=== PATIENT | female | born 1935 | race Caucasian/White ===

== ENCOUNTER 2020-03-02 15:07 | Emergency (ER) | payer MEDICARE, MEDICAID ==
[2020-03-02 15:56] VITALS: BP 144/82; PULSE 78
--- NOTE | 2020-03-02 16:00 | CR ---
[id number] RAD/RAD Knee Bilateral 3V EXAM: RAD Knee Bilateral 3V INDICATION: FALL/PAIN TO KNEES. COMPARISON: None. FINDINGS: Osteopenia. Minimal right knee joint effusion. Mild to moderate patellofemoral and mild medial lateral compartment osteoarthritis bilaterally. Acute nondisplaced proximal left fibula fracture. No other fracture is identified, but osteopenia somewhat limits sensitivity. IMPRESSION: 1. Essentially nondisplaced proximal left fibula fracture. 2. Small right knee joint effusion. 3. Mild to moderate osteoarthritis. Dain Delatorre MD 03/02/20 1220 Thank you for allowing us to participate in the care of your patient.
--- NOTE | 2020-03-02 16:56 | EDM.PDOC ---
ED HPI GENERAL MEDICAL PROBLEM - General Chief Complaint: General Stated Complaint: fall knee pain bilat Time Seen by Provider: 03/02/20 15:18 Source of Information: Reports: Patient - History of Present Illness INITIAL COMMENTS - FREE TEXT/NARRATIVE: Patient comes emergency department today from home with complaints of bilateral knee pain. Just prior to arrival the patient was at home when she was doing her laundry and she tripped and fell landing on her knees. She did not hit her head. There was no loss of conscious. She has no head neck or back pain. She complains of bilateral knee pain more on the left than the right. Her pain is on the lateral aspect of her knee below the kneecap. She denies any paresthesia of the lower extremity. She typically walks with a walker at home. She complains of generalized pain on the kneecap of the right knee. No paresthesias the lower extremity. She has not tried anything for pain. She does have some chronic arthritis that she struggles with and she is currently on a fentanyl patch which is really doing excellent for her pain management. Left Knee Pain Score (Numeric/FACES): 10 Right Knee Pain Score (Numeric/FACES): 5 - Related Data Allergies Allergy/AdvReac Type Severity Reaction Status Date / Time alendronate sodium Allergy Chest Pain Verified 03/02/20 15:22 [From Fosamax] aspirin Allergy Vomiting Verified 03/02/20 16:07 cephalexin [From Keflex] Allergy Wheezing Verified 03/02/20 15:22 erythromycin base Allergy Hives Verified 03/02/20 15:22 iodine Allergy Itching Verified 03/02/20 15:22 latex Allergy Itching Verified 03/02/20 15:22 oxycodone Allergy Cannot Verified 03/02/20 16:07 Remember Penicillins Allergy Hives Verified 03/02/20 15:22 risedronate sodium Allergy Cannot Verified 03/02/20 16:07 [From Actonel] Remember Sulfa (Sulfonamide Allergy Wheezing Verified 03/02/20 15:22 Antibiotics) Home Meds: Home Meds DULoxetine [Cymbalta] 60 mg PO DAILY 07/15/19 [History] Ferrous Sulfate 325 mg PO DAILY 07/15/19 [History] Hydrocodone/Acetaminophen [[place] 7.5-325 Tablet] 7.5 - 325 mg PO QID PRN [History] Loperamide [Imodium] 4 mg PO ASDIRECTED PRN 07/15/19 [History] Magnesium Oxide 500 mg PO BID 07/15/19 [History] Nitroglycerin [Nitrostat] 0.4 mg PO ASDIRECTED PRN 07/15/19 [History] Potassium Chloride 10 meq PO BID 07/15/19 [History] Propylene Glycol/Peg 400 [Systane Ultra 0.4-0.3% Eye Drp] 1 applic EYERT Q4H PRN 07/15/19 [History] Sennosides/Docusate Sodium [Senna-Docusate Sodium Tablet] 2 tab PO BID PRN 07/15 [History] Tetrahydrozoline HCl/Zinc Sulf [Cvs Astringent Eye Drops] 1 applic EYEBOTH Q4HR PRN 07/15/19 [History] Triamcinolone Acetonide [Triamcinolone Acetonide 0.1% Crm] 1 applic TOP ASDIRECTED PRN 07/15/19 [History] Trolamine Salicylate/Aloe Vera [Aspercreme 10% Cream] 1 applic TOP ASDIRECTED PRN 07/15/19 [History] Clopidogrel [Plavix] 75 mg PO DAILY #30 tablet 07/19/19 [Rx] atorvaSTATin [Lipitor] 10 mg PO BEDTIME #30 tablet 07/19/19 [Rx] Benzonatate [Tessalon Perle] 100 mg PO TID 03/02/20 [History] Biotin [Meribin] 5 mg PO BID 03/02/20 [History] Calcium Carb, Citrate/Vit D3 [Calcium + D3 ER Tablet] 2 each PO BID 03/02/20 [ History] Cyanocobalamin (Vitamin B-12) [B-12 Dots] 500 mcg PO DAILY 03/02/20 [History] Cyanocobalamin (Vitamin B-12) [Cyanocobalamin Injection] 1,000 mcg IM Q30D 03/02 [History] Ergocalciferol (Vitamin D2) [Vitamin D2] 50,000 unit PO Q84H 03/02/20 [History] Folic Acid 0.4 mg PO DAILY 03/02/20 [History] Furosemide 10 mg PO DAILY 03/02/20 [History] Furosemide [Lasix] 10 mg PO DAILY 03/02/20 [History] MV-Mn/Iron/FA/Vit K/K.Ginseng [[employer] Tab] 1 each PO DAILY [History] Multivitamin-Min/Iron/FA/Vit K [Multi-Day Plus Minerals Tablet] 1 each PO DAILY 03/02/20 [History] fentaNYL [Fentanyl] 1 each TD Q72H 03/02/20 [History] lisinopriL [Lisinopril] 2.5 mg PO DAILY 03/02/20 [History] methocarbamoL [Methocarbamol] 750 mg PO QID 03/02/20 [History] predniSONE [Prednisone] 20 mg PO DAILY 03/02/20 [History] Past Medical History Cardiovascular History: Reports: None Respiratory History: Reports: None ACTIMIZE 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 Endocrine/Metabolic History: Reports: None - Past Surgical History Cardiovascular Surgical History: Reports: None Female Surgical History: Reports: None Endocrine Surgical History: Reports: None Social & Family History - Tobacco Use Smoking Status *Q: Former Smoker Used Tobacco, but Quit: Yes Month/Year Tobacco Last Used: 1999 - Caffeine Use Caffeine Use: Reports: Coffee Caffeine Use Comment: Two ccup of coffe . ED ROS GENERAL - Review of Systems Review Of Systems: Comprehensive ROS is negative, except as noted in HPI. ED EXAM, GENERAL - Physical Exam Exam: See Below Exam Limited By: No Limitations General Appearance: Alert, WD/WN, No Apparent Distress Ears: Normal External Exam Nose: Normal Inspection Throat/Mouth: Normal Inspection Head: Atraumatic, Normocephalic Neck: Normal Inspection Respiratory/Chest: No Respiratory Distress, Lungs Clear Cardiovascular: Normal Peripheral Pulses, Regular Rate, Rhythm Peripheral Pulses: 2+: Radial (L), Radial (R), Posterior Tibial (L), Posterior Tibial (R), Dorsalis Pedis (L), Dorsalis Pedis (R) GI/Abdominal: Normal Bowel Sounds, Soft, Non-Tender, No Organomegaly, No Distention, Pelvis Stable (Female) Exam: Deferred Rectal (Female) Exam: Deferred Back Exam: Full Range of Motion. No: Normal Inspection (The patient has tenderness on the proximal lateral aspect of the left fibula. We are able to put the knee through the range of motion with minimal crepitus. There is no overt bony deformity dislocation. CMS intact appropriately. She does have some chronic ulcers on her lower legs due to venous insufficiency that are unremarkable. Her right knee she has a contusion just to the 5 o'clock position of the patella. There is no overt bony deformity. I am able to put the knee through range of motion. There is no crepitus. There is no bruising or swelling. She has similar chronic venous stasis ulcerations of the lower extremities that are otherwise unremarkable. The CMS intact appropriately bilaterally. She moves her extremities appropriately.), CVA Tenderness (L), CVA Tenderness (R), Muscle Spasm, Paraspinal Tenderness, Vertebral Tenderness Extremities: Normal Inspection, Normal Range of Motion, Non-Tender, No Pedal Edema, Normal Capillary Refill Neurological: Alert, Oriented, Normal Cognition, No Motor/Sensory Deficits Psychiatric: Normal Affect, Normal Mood Skin Exam: Warm, Dry, Intact, Normal Color, No Rash Course - Vital Signs Last Recorded V/S: Last Vital Signs Temp 36.1 C 03/02/20 15:10 Pulse 78 03/02/20 15:10 Resp 16 03/02/20 15:10 BP 144/82 H 03/02/20 15:10 Pulse Ox 97 03/02/20 15:10 - Radiology Interpretation Free Text/Narrative:: The bilateral knees. Nondisplaced proximal left fibular fracture. Small right knee joint effusion. Mild to moderate osteoarthritis bilaterally. - Re-Assessments/Exams Free Text/Narrative Re-Assessment/Exam: 03/02/20 This was applied to the areas of injury to her knees. She denied anything for pain. Xray shows a nondisplaced proximal left fibular fracture. A knee immobilizer was placed on the left knee. The patient was able to ambulate easily with a walker without any pain discomfort. She was steady and feels comfortable with going home. Discharge instruction as below were explained to the patient. She was comfortable with this plan and her questions answered. Departure - Departure Time of Disposition: 16:30 Disposition: Home, Self-Care 01 Clinical Impression: Fracture of proximal end of left fibula Qualifiers: Encounter type: initial encounter Fracture type: closed Fracture morphology: unspecified fracture morphology Qualified Code(s): S82.832A - Other fracture of upper and lower end of left fibula, initial encounter for closed fracture Contusion of knee, right Qualifiers: Encounter type: initial encounter Qualified Code(s): S80.01XA - Contusion of right knee, initial encounter - Discharge Information Instructions: How to Use Cold Therapy, [id number], Contusion, [id number] Referrals: Charu Arzate DO [Primary Care Provider] - Forms: ED Department Discharge Additional Instructions: Ice to the sore areas of the knee. Knee immobilizer at all times. Use your walker at all times. Continue your home medications Tylenol 650mg every 6 hrs as needed for pain. Follow up with ortho in 1 week for recheck and intermediate card tender management. Return to the ED if new or worsening symptoms. Sepsis Event Note (ED) - Evaluation Sepsis Screening Result: No Definite Risk - Focused Exam Vital Signs: Vital Signs Temp Pulse Resp BP Pulse Ox 03/02/20 15:10 36.1 C 78 16 144/82 H 97 - Assessment/Plan Assessment:: Left proximal fibula fracture Right knee contusion with effusion. Plan: Ice to the sore areas of the knee. Knee immobilizer at all times. Use your walker at all times. Continue your home medications Tylenol 650mg every 6 hrs as needed for pain. Follow up with ortho in 1 week for recheck and intermediate card tender management. Return to the ED if new or worsening symptoms.
== END 2020-03-02 17:05 | disposition home or self-care (01) ==
LOC: VM.ED 15:07
DX: S82.832A Other fracture of upper and lower end of left fibula, initial encounter for closed fracture (principal); S80.01XA Contusion of right knee, initial encounter; Z88.6 Allergy status to analgesic agent; Z88.1 Allergy status to other antibiotic agents; Z91.040 Latex allergy status; Z88.5 Allergy status to narcotic agent; Z88.2 Allergy status to sulfonamides; Z88.0 Allergy status to penicillin; Z79.899 Other long term (current) drug therapy; Z79.02 Long term (current) use of antithrombotics/antiplatelets; Z87.891 Personal history of nicotine dependence; W01.0XXA Fall on same level from slipping, tripping and stumbling without subsequent striking against object, initial encounter; Y92.009 Unspecified place in unspecified non-institutional (private) residence as the place of occurrence of the external cause
CPT/HCPCS: 73562-50; 99283-GF; 99284

== ENCOUNTER 2021-08-02 23:47 | Emergency (ER) | payer MEDICARE, MEDICAID ==
--- NOTE | 2021-08-03 00:10 | EDM.PDOC ---
ED HPI GENERAL MEDICAL PROBLEM - General Chief Complaint: General Stated Complaint: left hip pain Time Seen by Provider: 08/03/21 00:00 Source of Information: Reports: Patient, EMS History Limitations: Reports: No Limitations - History of Present Illness INITIAL COMMENTS - FREE TEXT/NARRATIVE: Monica is an 86 year old female who presents to ER per EMS with complaints of left hip pain and groin pain. Slipped down off her bed and landed on her buttocks. Has pain with any movement of her left leg. Has bilateral lower extremity discomfort, chronic in nature. [facility] today due to multiple falls. States tonight was getting up to go to the bathroom and her "legs wouldn't hold me". Denies any head trauma. No chest discomfort. No nausea or vomiting. Onset: Today, Sudden Duration: Minutes:, Constant Location: Reports: Lower Extremity, Left Quality: Reports: Ache Severity: Moderate Improves with: Reports: Rest Worsens with: Reports: Movement Context: Reports: Trauma Associated Symptoms: Reports: Weakness. Denies: Confusion, Chest Pain, Cough, Fever/Chills, Headaches, Loss of Appetite, Nausea/Vomiting, Shortness of Breath Left Hip Pain Score (Numeric/FACES): 5 - Related Data Allergies Allergy/AdvReac Type Severity Reaction Status Date / Time alendronate sodium Allergy Chest Pain Verified 06/09/20 09:59 [From Fosamax] aspirin Allergy Vomiting Verified 06/09/20 09:59 cephalexin [From Keflex] Allergy Wheezing Verified 06/09/20 09:59 erythromycin base Allergy Hives Verified 06/09/20 09:59 iodine Allergy Itching Verified 06/09/20 09:59 latex Allergy Itching Verified 06/09/20 09:59 oxycodone Allergy Cannot Verified 06/09/20 09:59 Remember Penicillins Allergy Hives Verified 06/09/20 09:59 risedronate sodium Allergy Cannot Verified 06/09/20 09:59 [From Actonel] Remember Sulfa (Sulfonamide Allergy Wheezing Verified 06/09/20 09:59 Antibiotics) bandaids Allergy Other Uncoded 06/09/20 09:59 celiac sprue Allergy Cannot Uncoded 08/03/21 00:06 Remember Home Meds: Home Meds Ferrous Sulfate 325 mg PO DAILY 07/15/19 [History] Loperamide [Imodium] 4 mg PO ASDIRECTED PRN 07/15/19 [History] Magnesium Oxide 500 mg PO DAILY 07/15/19 [History] Nitroglycerin [Nitrostat] 0.4 mg PO ASDIRECTED PRN 07/15/19 [History] Propylene Glycol/Peg 400 [Systane Ultra 0.4-0.3% Eye Drp] 1 applic EYERT Q4H PRN 07/15/19 [History] Tetrahydrozoline HCl/Zinc Sulf [Cvs Astringent Eye Drops] 1 applic EYEBOTH Q4HR PRN 07/15/19 [History] Trolamine Salicylate/Aloe Vera [Aspercreme 10% Cream] 1 applic TOP ASDIRECTED PRN 07/15/19 [History] Clopidogrel [Plavix] 75 mg PO DAILY #30 tablet 07/19/19 [Rx] atorvaSTATin [Lipitor] 10 mg PO BEDTIME #30 tablet 07/19/19 [Rx] Calcium Carb, Citrate/Vit D3 [Calcium + D3 ER Tablet] 2 each PO BID 03/02/20 [History] Cyanocobalamin (Vitamin B-12) [Cyanocobalamin Injection] 1,000 mcg IM Q30D 03/02/20 [History] Ergocalciferol (Vitamin D2) [Vitamin D2] 50,000 unit PO WEEKLY 03/02/20 [History] Folic Acid 800 mcg PO BID 03/02/20 [History] Multivitamin-Min/Iron/FA/Vit K [Multi-Day Plus Minerals Tablet] 1 each PO DAILY 03/02/20 [History] lisinopriL [Lisinopril] 2.5 mg PO DAILY 03/02/20 [History] methocarbamoL [Methocarbamol] 750 mg PO BID PRN 03/02/20 [History] DULoxetine [Cymbalta] 60 mg PO DAILY 06/09/20 [History] Biotin 1,000 mcg PO DAILY 08/03/21 [History] Buprenorphine 1 each TD ASDIRECTED 08/03/21 [History] traMADol HCl [Tramadol HCl] 50 mg PO Q8HR PRN 08/03/21 [History] Past Medical History HEENT History: Reports: Other (See Below) Other HEENT History: pseudophakia Cardiovascular History: Reports: Hypertension, Other (See Below) Other Cardiovascular History: mitral regurgitation, BRVO, 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, raynaud disease, venous insufficiency, chest pain Respiratory History: Reports: None Gastrointestinal History: Reports: GERD, Pancreatitis, Other (See Below) Other Gastrointestinal History: celiac sprue Genitourinary History: Reports: Urinary Incontinence, Other (See Below) Other Genitourinary History: stress incontinence, symptomatic menopausal or female climacteric states HOUSE SITTER History: Reports: Prolapsed Uterus Musculoskeletal History: Reports: Arthritis, Fracture, Osteoporosis, RA, Other (See Below) Other Musculoskeletal History: back pain, malaise and fatigue Neurological History: Reports: CVA, Other (See Below) Other Neuro History: fibromyalgia, insomnia, periphreal polyneuropathy Psychiatric History: Reports: Anxiety, Dementia, Depression Other Psychiatric History: Some times anxiety. 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 - Infectious Disease History Infectious Disease History: Reports: C-Difficile - Past Surgical History HEENT Surgical History: Reports: Oral Surgery Cardiovascular Surgical History: Reports: None GI Surgical History: Reports: Appendectomy, Hernia Repair/Other Female Surgical History: Reports: None, Hysterectomy Endocrine Surgical History: Reports: None Musculoskeletal Surgical History: Reports: Other (See Below) Other Musculoskeletal Surgeries/Procedures:: hammer toe surgery Social & Family History - Tobacco Use Tobacco Use Status *Q: Unknown Ever Used Tobacco - Caffeine Use Caffeine Use: Reports: Coffee Caffeine Use Comment: Two ccup of coffe . ED ROS GENERAL - Review of Systems Review Of Systems: See Below Constitutional: Reports: Weakness. Denies: Malaise, Fatigue, Decreased Appetite HEENT: Denies: Ear Pain, Rhinitis, Sinus Problem, Throat Pain Respiratory: Denies: Shortness of Breath, Cough Cardiovascular: Denies: Chest Pain Endocrine: Denies: Fatigue GI/Abdominal: Denies: Abdominal Pain, Nausea, Vomiting : Reports: No Symptoms Musculoskeletal: Reports: Leg Pain, Joint Pain Skin: Reports: Other (redness to legs, chronic in nature) Neurological: Reports: Weakness ED EXAM, GENERAL - Physical Exam Exam: See Below Exam Limited By: No Limitations General Appearance: Alert, WD/WN, Mild Distress Ears: Normal External Exam, Normal TMs Nose: Normal Inspection, Normal Mucosa, No Blood Throat/Mouth: Normal Inspection, Normal Oropharynx Head: Normocephalic Neck: Normal Inspection, Supple, Non-Tender Respiratory/Chest: No Respiratory Distress, Lungs Clear, Normal Breath Sounds Cardiovascular: Regular Rate, Rhythm GI/Abdominal: Normal Bowel Sounds, Soft, Non-Tender Extremities: Limited Range of Motion (pain with movement of left leg/range of motion of hip. Does have tenderness to lower extremities bilaterally), Other Neurological: Alert, Oriented Skin Exam: Other (bandage intact to left puga. Has red skin tone to lower legs bilaterally) Course - Vital Signs Last Recorded V/S: Last Vital Signs Temp 97.7 F 08/03/21 00:00 Pulse 81 08/03/21 02:02 Resp 16 08/03/21 02:02 BP 200/93 H 08/03/21 02:02 Pulse Ox 93 L 08/03/21 02:02 - Orders/Labs/Meds Orders: Active Orders 24 hr Category Date Time Status Pelvis 1V or 2V [CR] Stat Exams 08/03/21 00:04 Ordered Meds: Medications Discontinued Medications Generic Name Dose Route Start Last Admin Trade Name Ada PRN Reason Stop Dose Admin Clonidine HCl 0.1 mg 08/03/21 01:00 08/03/21 01:08 Clonidine 0.1 Mg Tab PO 08/03/21 01:01 0.1 mg ONETIME ONE Administration Fentanyl 25 mcg 08/03/21 00:22 08/03/21 00:40 Fentanyl 50 Mcg/Ml Sdv IVPUSH 08/03/21 00:23 Not Given ONETIME ONE Fentanyl 12.5 mcg 08/03/21 00:28 08/03/21 00:41 Fentanyl 50 Mcg/Ml Sdv IVPUSH 08/03/21 00:29 12.5 mcg ONETIME ONE Administration - Re-Assessments/Exams Free Text/Narrative Re-Assessment/Exam: 08/03/21 01:45 Call placed to [facility] [facility] after xray report received and notes inferior and superior pubic rami fractures. Awaiting call from ortho. 08/03/21 02:[address] back [address] Dr[address] Renae. Advised no surgical intervention. Weight bear as tolerated. Will increase to Lisinopril to 5 mg daily. Departure - Departure Time of Disposition: 02:32 Disposition: Home, Self-Care 01 Condition: Fair Clinical Impression: Pubic ramus fracture Qualifiers: Encounter type: initial encounter Fracture type: closed Laterality: left Qualified Code(s): S32.592A - Other specified fracture of left pubis, initial encounter for closed fracture - Discharge Information Referrals: PCP,None [Primary Care Provider] - Forms: ED Department Discharge Additional Instructions: 1. Increase Lisinopril to 5 mg daily. Recheck blood pressure BID for next [address] report to Dr[address] Arzate 2. Increase tramadol to 50 mg- 1-2 every 6 hours as needed for pain 3. Weight-bear as tolerated 4. Follow up as needed Sepsis Event Note (ED) - Evaluation Sepsis Screening Result: No Definite Risk - Focused Exam Vital Signs: Vital Signs Temp Pulse Resp BP BP Pulse Ox 08/03/21 02:02 81 16 200/93 H 93 L 08/03/21 01:45 88 16 212/104 H 92 L 08/03/21 01:08 199/97 H 08/03/21 00:53 86 16 196/89 H 95 08/03/21 00:41 84 215/97 H 08/03/21 00:25 152/76 H 08/03/21 00:00 97.7 F 88 16 199/95 H 96 - My Orders Last 24 Hours: My Active Orders 08/03/21 00:04 Pelvis 1V or 2V [CR] Stat - Assessment/Plan Last 24 Hours: My Active Orders 08/03/21 00:04 Pelvis 1V or 2V [CR] Stat
[2021-08-03] MEDS ORDERED: fentaNYL 50 MCG/ML SDV IVPUSH ONE ×2 (00:22→00:28)
--- NOTE | 2021-08-03 00:22 | EDM.PDOC ---
ED HPI GENERAL MEDICAL PROBLEM - General Chief Complaint: General Time Seen by Provider: 08/03/21 00:00 Source of Information: Reports: Patient, EMS History Limitations: Reports: No Limitations - History of Present Illness INITIAL COMMENTS - FREE TEXT/NARRATIVE: Monica is an 86 year old female who presents to ER per EMS with complaints of left hip pain and groin pain. Slipped down off her bed and landed on her buttocks. Has pain with any movement of her left leg. Has bilateral lower extremity discomfort, chronic in nature. Was admitted to the long-term today due to multiple falls. States tonight was getting up to go to the bathroom and her "legs wouldn't hold me". Denies any head trauma. No chest discomfort. No nausea or vomiting. Onset: Today, Sudden Duration: Minutes:, Constant Location: Reports: Lower Extremity, Left Quality: Reports: Ache Severity: Moderate Improves with: Reports: Rest Worsens with: Reports: Movement Context: Reports: Trauma Associated Symptoms: Reports: Weakness. Denies: Confusion, Chest Pain, Cough, Fever/Chills, Headaches, Loss of Appetite, Nausea/Vomiting, Shortness of Breath Left Hip Pain Score (Numeric/FACES): 5 - Related Data Allergies Allergy/AdvReac Type Severity Reaction Status Date / Time alendronate sodium Allergy Chest Pain Verified 06/09/20 09:59 [From Fosamax] aspirin Allergy Vomiting Verified 06/09/20 09:59 cephalexin [From Keflex] Allergy Wheezing Verified 06/09/20 09:59 erythromycin base Allergy Hives Verified 06/09/20 09:59 iodine Allergy Itching Verified 06/09/20 09:59 latex Allergy Itching Verified 06/09/20 09:59 oxycodone Allergy Cannot Verified 06/09/20 09:59 Remember Penicillins Allergy Hives Verified 06/09/20 09:59 risedronate sodium Allergy Cannot Verified 06/09/20 09:59 [From Actonel] Remember Sulfa (Sulfonamide Allergy Wheezing Verified 06/09/20 09:59 Antibiotics) bandaids Allergy Other Uncoded 06/09/20 09:59 celiac sprue Allergy Cannot Uncoded 08/03/21 00:06 Remember Home Meds: Home Meds Ferrous Sulfate 325 mg PO DAILY 07/15/19 [History] Hydrocodone/Acetaminophen [[place] 7.5-325 Tablet] 7.5 - 325 mg PO QID PRN 07/15/19 [History] Loperamide [Imodium] 4 mg PO ASDIRECTED PRN 07/15/19 [History] Magnesium Oxide 500 mg PO DAILY 07/15/19 [History] Nitroglycerin [Nitrostat] 0.4 mg PO ASDIRECTED PRN 07/15/19 [History] Potassium Chloride 10 meq PO BID 07/15/19 [History] Propylene Glycol/Peg 400 [Systane Ultra 0.4-0.3% Eye Drp] 1 applic EYERT Q4H PRN 07/15/19 [History] Sennosides/Docusate Sodium [Senna-Docusate Sodium Tablet] 2 tab PO BID PRN 07/15/19 [History] Tetrahydrozoline HCl/Zinc Sulf [Cvs Astringent Eye Drops] 1 applic EYEBOTH Q4HR PRN 07/15/19 [History] Triamcinolone Acetonide [Triamcinolone Acetonide 0.1% Crm] 1 applic TOP ASDIRECTED PRN 07/15/19 [History] Trolamine Salicylate/Aloe Vera [Aspercreme 10% Cream] 1 applic TOP ASDIRECTED PRN 07/15/19 [History] Clopidogrel [Plavix] 75 mg PO DAILY #30 tablet 07/19/19 [Rx] atorvaSTATin [Lipitor] 10 mg PO BEDTIME #30 tablet 07/19/19 [Rx] Benzonatate [Tessalon Perle] 100 mg PO TID 03/02/20 [History] Calcium Carb, Citrate/Vit D3 [Calcium + D3 ER Tablet] 2 each PO BID 03/02/20 [History] Cyanocobalamin (Vitamin B-12) [B-12 Dots] 500 mcg PO DAILY 03/02/20 [History] Cyanocobalamin (Vitamin B-12) [Cyanocobalamin Injection] 1,000 mcg IM Q30D 03/02/20 [History] Ergocalciferol (Vitamin D2) [Vitamin D2] 50,000 unit PO WEEKLY 03/02/20 [History] Folic Acid 1,000 mcg PO BID 03/02/20 [History] Furosemide 10 mg PO DAILY 03/02/20 [History] MV-Mn/Iron/FA/Vit K/K.Ginseng [Centrum [employer] Tab] 1 each PO DAILY 03/02/20 [History] Multivitamin-Min/Iron/FA/Vit K [Multi-Day Plus Minerals Tablet] 1 each PO DAILY 03/02/20 [History] fentaNYL [Fentanyl] 1 each TD Q72H 03/02/20 [History] lisinopriL [Lisinopril] 2.5 mg PO DAILY 03/02/20 [History] methocarbamoL [Methocarbamol] 750 mg PO BID PRN 03/02/20 [History] DULoxetine [Cymbalta] 60 mg PO DAILY 06/09/20 [History] Past Medical History HEENT History: Reports: Other (See Below) Other HEENT History: pseudophakia Cardiovascular History: Reports: Hypertension, Other (See Below) Other Cardiovascular History: mitral regurgitation, BRVO, 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, raynaud disease, venous insufficiency, chest pain Respiratory History: Reports: None Gastrointestinal History: Reports: GERD, Pancreatitis, Other (See Below) Other Gastrointestinal History: celiac sprue Genitourinary History: Reports: Urinary Incontinence, Other (See Below) Other Genitourinary History: stress incontinence, symptomatic menopausal or female climacteric states 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 - Infectious Disease History Infectious Disease History: Reports: C-Difficile - Past Surgical History HEENT Surgical History: Reports: Oral Surgery Cardiovascular Surgical History: Reports: None GI Surgical History: Reports: Appendectomy, Hernia Repair/Other Female Surgical History: Reports: None, Hysterectomy Endocrine Surgical History: Reports: None Musculoskeletal Surgical History: Reports: Other (See Below) Other Musculoskeletal Surgeries/Procedures:: hammer toe surgery Social & Family History - Tobacco Use Tobacco Use Status *Q: Never Tobacco User - Caffeine Use Caffeine Use: Reports: Coffee Caffeine Use Comment: Two ccup of coffe . - Recreational Drug Use Recreational Drug Use: No Review of Systems - Review of Systems Review Of Systems: See Below Constitutional: Reports: Weakness. Denies: Chills, Diaphoresis, Fever Eyes: Denies: Decreased Acuity, Vision Change Ears: Denies: Dizziness, Pain Nose: Reports: No Symptoms Mouth/Throat: Reports: No Symptoms Respiratory: Denies: Shortness of Breath, Cough Cardiovascular: Denies: Chest Pain, Lightheadedness GI/Abdominal: Denies: Abdominal Pain, Nausea, Vomiting Genitourinary: Reports: Incontinence Musculoskeletal: Reports: Leg Pain, Joint Pain ED EXAM, GENERAL - Physical Exam Free Text/Narrative:: Monica is an 86 year old female who presents to ER per EMS with complaints of left hip pain and groin pain. Slipped down off her bed and landed on her buttocks. Has pain with any movement of her left leg. Has bilateral lower extremity discomfort, chronic in nature. Was admitted to the long-term today due to multiple falls. States tonight was getting up to go to the bathroom and her "legs wouldn't hold me". Denies any head trauma. No chest discomfort. No nausea or vomiting. Exam Limited By: No Limitations General Appearance: Alert, WD/WN, Mild Distress Course - Vital Signs Last Recorded V/S: Last Vital Signs Temp 97.7 F 08/03/21 00:00 Pulse 88 08/03/21 00:00 Resp 16 08/03/21 00:00 BP 199/95 H 08/03/21 00:00 Pulse Ox 96 08/03/21 00:00 - Orders/Labs/Meds Orders: Active Orders 24 hr Category Date Time Status Hip Min 2V or 3V w Pelvis Lt [CR] Stat Exams 08/03/21 00:04 Ordered Departure - Discharge Information Forms: ED Department Discharge Sepsis Event Note (ED) - Evaluation Sepsis Screening Result: No Definite Risk - Focused Exam Vital Signs: Vital Signs Temp Pulse Resp BP Pulse Ox 08/03/21 00:00 97.7 F 88 16 199/95 H 96 - My Orders Last 24 Hours: My Active Orders 08/03/21 00:04 Hip Min 2V or 3V w Pelvis Lt [CR] Stat - Assessment/Plan Last 24 Hours: My Active Orders 08/03/21 00:04 Hip Min 2V or 3V w Pelvis Lt [CR] Stat
[2021-08-03] MEDS ORDERED: cloNIDine 0.1 MG Tab PO ONE (01:00)
[2021-08-03 02:03] VITALS: PULSE 81
[2021-08-03 02:35] VITALS: BP 181/94
[2021-08-03] MEDS ORDERED: fentaNYL 50 MCG/ML SDV IM ONE (02:52)
--- NOTE | 2021-08-03 08:42 | CR ---
[id number] RAD/RAD Pelvis 1-2V EXAM: AP PELVIS CLINICAL DATA: FALL COMPARISON: None. FINDINGS: Acute left superior and inferior pubic rami fractures. The superior ramus fracture is displaced at least 6 mm and is near the acetabulum. Osteopenia. Moderate osteoarthritis of the hips, right greater than left. IMPRESSION: 1. Acute left superior and inferior pubic rami fractures. The left superior pubic ramus fracture is near to and may involve the acetabulum. Dain Delatorre MD 08/03/21 0841 Thank you for allowing us to participate in the care of your patient.
== END 2021-08-03 03:10 | disposition home or self-care (01) ==
LOC: VM.ED 23:47
DX: S32.592A Other specified fracture of left pubis, initial encounter for closed fracture (principal); I10 Essential (primary) hypertension; K21.9 Gastro-esophageal reflux disease without esophagitis; Z86.73 Personal history of transient ischemic attack (TIA), and cerebral infarction without residual deficits; Z91.048 Other nonmedicinal substance allergy status; Z88.0 Allergy status to penicillin; Z88.2 Allergy status to sulfonamides; Z88.1 Allergy status to other antibiotic agents; Z91.040 Latex allergy status; Z79.02 Long term (current) use of antithrombotics/antiplatelets; Z79.899 Other long term (current) drug therapy; W06.XXXA Fall from bed, initial encounter
CPT/HCPCS: 72170; 96372; 96374; 99284; A9270; J3010

== ENCOUNTER 2022-01-24 07:16 | Day surgery (SDC) | payer MEDICARE, MEDICAID ==
[~2022-01-24 07:16] MED LIST: Lactated Ringers 1,000 ML IV SCH
[2022-01-24] MEDS ORDERED: Propofol 200 MG/20 ML SDV ONE ×2 (08:00→09:43)
[2022-01-24 11:32] VITALS: BP 155/86; PULSE 80
== END 2022-01-24 13:24 ==
LOC: VM.SDS 07:16
PROVIDERS: ATTEND Family Medicine
DX: D12.0 Benign neoplasm of cecum (principal); D12.8 Benign neoplasm of rectum; D12.3 Benign neoplasm of transverse colon; D64.9 Anemia, unspecified; K64.4 Residual hemorrhoidal skin tags; E87.1 Hypo-osmolality and hyponatremia; M25.531 Pain in right wrist; M79.7 Fibromyalgia; M54.2 Cervicalgia; R29.6 Repeated falls; I10 Essential (primary) hypertension; M19.90 Unspecified osteoarthritis, unspecified site; K21.9 Gastro-esophageal reflux disease without esophagitis; F41.1 Generalized anxiety disorder; G47.00 Insomnia, unspecified; G62.9 Polyneuropathy, unspecified; I83.009 Varicose veins of unspecified lower extremity with ulcer of unspecified site; Z88.0 Allergy status to penicillin; Z88.2 Allergy status to sulfonamides; Z88.1 Allergy status to other antibiotic agents; Z88.6 Allergy status to analgesic agent; Z91.048 Other nonmedicinal substance allergy status; Z88.8 Allergy status to other drugs, medicaments and biological substances; Z91.041 Radiographic dye allergy status; Z91.040 Latex allergy status; Z88.5 Allergy status to narcotic agent; Z87.891 Personal history of nicotine dependence; Z79.899 Other long term (current) drug therapy; Z86.73 Personal history of transient ischemic attack (TIA), and cerebral infarction without residual deficits
CPT/HCPCS: 00811; 88305; J2704; J7120

== ENCOUNTER 2023-09-10 19:26 | Emergency (ER) | payer MEDICARE, MEDICAID ==
[2023-09-10 19:46] LABS: BASOPHILS ABSOLUTE AUTO 0.1 x10^3/uL (0.0-0.2); BASOPHILS PERCENT AUTO 0.9 % (0.2-1.2); EOSINOPHILS ABSOLUTE AUTO 0.4 x10^3/uL (0.0-0.5); EOSINOPHILS PERCENT AUTO 7.2 % (0.0-4.0); HEMOGLOBIN 12.1 g/dL (12.0-16.0); IMMATURE GRAN ABSOLUTE AUTO 0.01 x10^3/uL (0.00-0.07); LYMPHOCYTES ABSOLUTE AUTO 2.5 x10^3/uL (1.0-4.8); LYMPHOCYTES PERCENT AUTO 44.5 % (25.0-50.0); MEAN CORPUSCULAR HEMOGLOBIN 30.3 pg (26.0-32.0); MEAN CORPUSCULAR HGB CONC 32.7 g/dL (32.0-36.0); MEAN CORPUSCULAR VOLUME 92.5 fL (78.0-93.0); MONOCYTES ABSOLUTE AUTO 0.7 x10^3/uL (0.0-0.8); MONOCYTES PERCENT AUTO 12.5 % (2.0-11.0); NEUTROPHILS PERCENT AUTO 34.7 % (50.0-80.0); PLATELET COUNT,PLT 346 x10^3/uL (130-400); WHITE BLOOD CELL COUNT,WBC 5.7 x10^3/uL (4.0-10.0)
[2023-09-10 20:04] VITALS: BP 138/78; PULSE 77
[2023-09-10 20:10] LABS: A/G RATIO 1.03; ALBUMIN 3.4 g/dL (3.4-5.0); ANION GAP 16.7 mmol/L (5-15); BILIRUBIN TOTAL 0.1 mg/dL (0.2-1.0); CALCIUM 8.6 mg/dL (8.5-10.1); CREATININE 1.5 mg/dL (0.55-1.02); EST CRCL DRUG DOSING (CG) 17.35 mL/min; POTASSIUM,K 4.7 mmol/L (3.5-5.1); PROTEIN TOTAL,TP 6.7 g/dL (6.4-8.2)
== END 2023-09-10 20:45 ==
LOC: VM.ED 19:26
DX: R07.89 Other chest pain (principal); I10 Essential (primary) hypertension; E83.42 Hypomagnesemia; Z88.0 Allergy status to penicillin; Z88.2 Allergy status to sulfonamides; Z91.040 Latex allergy status; Z88.8 Allergy status to other drugs, medicaments and biological substances; Z79.899 Other long term (current) drug therapy; Z90.49 Acquired absence of other specified parts of digestive tract; Z90.710 Acquired absence of both cervix and uterus
CPT/HCPCS: 36415; 71045; 80053; 83880; 84484; 85025; 93005; 93010; 99284; 99285

== ENCOUNTER 2025-01-22 22:29 | Emergency (ER) | payer MEDICARE, MEDICAID ==
[2025-01-22 22:52] LABS: BASOPHILS ABSOLUTE AUTO 0.1 x10^3/uL (0.0-0.2); BASOPHILS PERCENT AUTO 1.1 % (0.2-1.2); EOSINOPHILS ABSOLUTE AUTO 0.4 x10^3/uL (0.0-0.5); EOSINOPHILS PERCENT AUTO 5.1 % (0.0-4.0); HEMATOCRIT 38.3 % (33.0-47.0); HEMOGLOBIN 12.8 g/dL (12.0-16.0); IMMATURE GRAN ABSOLUTE AUTO 0.01 x10^3/uL (0.00-0.07); LYMPHOCYTES ABSOLUTE AUTO 2.9 x10^3/uL (1.0-4.8); LYMPHOCYTES PERCENT AUTO 41.8 % (25.0-50.0); MEAN CORPUSCULAR HEMOGLOBIN 30.5 pg (26.0-32.0); MEAN CORPUSCULAR HGB CONC 33.4 g/dL (32.0-36.0); MEAN CORPUSCULAR VOLUME 91.2 fL (78.0-93.0); MONOCYTES ABSOLUTE AUTO 0.8 x10^3/uL (0.0-0.8); MONOCYTES PERCENT AUTO 11.8 % (2.0-11.0); NEUTROPHILS ABSOLUTE AUTO 2.8 x10^3/uL (1.8-7.7); NEUTROPHILS PERCENT AUTO 40.1 % (50.0-80.0); PLATELET COUNT,PLT 405 x10^3/uL (130-400)
[2025-01-22 23:08] LABS: A/G RATIO 1.03; ALANINE AMINOTRANSFERASE,ALT 25 U/L (14-59); ALBUMIN 3.5 g/dL (3.4-5.0); ALKALINE PHOSPHATASE 73 U/L (46-116); ASPARTATE AMNIOTRANSFERASE,AST 18 U/L (15-37); BILIRUBIN TOTAL 0.2 mg/dL (0.2-1.0); BLOOD UREA NITROGEN,BUN 32 mg/dL (7-18); CARBON DIOXIDE,CO2 28 mmol/L (21-32); CHLORIDE,CL 101 mmol/L (98-107); CREATININE 1.2 mg/dL (0.55-1.02); GLUCOSE RANDOM 115 mg/dL (70-99); MAGNESIUM 1.9 mg/dL (1.8-2.4); POTASSIUM,K 4.2 mmol/L (3.5-5.1); PROTEIN TOTAL,TP 6.9 g/dL (6.4-8.2); SODIUM,NA 136 mmol/L (136-145)
[2025-01-22 23:10] LABS: ANION GAP 11.2 mmol/L (5-15); ESTIMATED GFR 44 mL/min (>=60)
[2025-01-22 23:15] LABS: APPEARANCE,URINE CLEAR (CLEAR); BILIRUBIN,URINE NEGATIVE (NEGATIVE); COLOR,URINE YELLOW (YELLOW); GLUCOSE,URINE NEGATIVE (NEGATIVE); KETONES,URINE NEGATIVE (NEGATIVE); LEUKOCYTE ESTERASE,URINE NEGATIVE (NEGATIVE); NITRITE,URINE NEGATIVE (NEGATIVE); OCCULT BLOOD,URINE NEGATIVE (NEGATIVE); PH,URINE 6.5 (5.0-8.0); PROTEIN,URINE 30 mg/dL (NEGATIVE); RBC,URINE 0-5 /HPF (NOT SEEN); SQUAMOUS EPITHELIAL CELLS,UR OCCASIONAL /HPF (NOT SEEN); UROBILINOGEN,URINE 0.2 EU/dL (0.2); WBC,URINE 0-5 /HPF (NOT SEEN)
[2025-01-22 23:16] LABS: BACTERIA,URINE OCCASIONAL /HPF (NOT SEEN); MUCUS,URINE NOT SEEN /LPF (NOT SEEN)
[2025-01-22 23:30] VITALS: BP 152/100; PULSE 82
== END 2025-01-23 00:05 ==
LOC: VM.ED 22:29
DX: R41.82 Altered mental status, unspecified (principal); I10 Essential (primary) hypertension; Z90.49 Acquired absence of other specified parts of digestive tract; Z90.710 Acquired absence of both cervix and uterus; Z88.0 Allergy status to penicillin; Z88.6 Allergy status to analgesic agent; Z88.1 Allergy status to other antibiotic agents; Z88.2 Allergy status to sulfonamides; Z88.8 Allergy status to other drugs, medicaments and biological substances; Z91.040 Latex allergy status; Z79.899 Other long term (current) drug therapy
CPT/HCPCS: 36415; 70450; 80053; 81001; 83735; 85025; 99284; 99285

== ENCOUNTER 2025-01-26 15:38 | Emergency (ER) | payer MEDICARE, MEDICAID ==
[2025-01-26 15:52] LABS: BASOPHILS ABSOLUTE AUTO 0.1 x10^3/uL (0.0-0.2); BASOPHILS PERCENT AUTO 1.3 % (0.2-1.2); EOSINOPHILS ABSOLUTE AUTO 0.4 x10^3/uL (0.0-0.5); EOSINOPHILS PERCENT AUTO 6.1 % (0.0-4.0); HEMATOCRIT 36.7 % (33.0-47.0); HEMOGLOBIN 12.4 g/dL (12.0-16.0); IMMATURE GRAN ABSOLUTE AUTO 0.01 x10^3/uL (0.00-0.07); LYMPHOCYTES ABSOLUTE AUTO 2.6 x10^3/uL (1.0-4.8); LYMPHOCYTES PERCENT AUTO 38.3 % (25.0-50.0); MEAN CORPUSCULAR HEMOGLOBIN 30.5 pg (26.0-32.0); MEAN CORPUSCULAR HGB CONC 33.8 g/dL (32.0-36.0); MEAN CORPUSCULAR VOLUME 90.2 fL (78.0-93.0); MONOCYTES ABSOLUTE AUTO 0.7 x10^3/uL (0.0-0.8); MONOCYTES PERCENT AUTO 9.9 % (2.0-11.0); NEUTROPHILS PERCENT AUTO 44.3 % (50.0-80.0); PLATELET COUNT,PLT 379 x10^3/uL (130-400); RED BLOOD CELL COUNT 4.07 x10^6/uL (4.00-5.50); WHITE BLOOD CELL COUNT,WBC 6.7 x10^3/uL (4.0-10.0)
[2025-01-26 16:02] LABS: PROTHROMBIN TIME 10.4 SEC (9.6-12.0)
[2025-01-26 16:05] VITALS: PULSE 79
[2025-01-26 16:07] LABS: A/G RATIO 1.09; ALBUMIN 3.5 g/dL (3.4-5.0); BILIRUBIN TOTAL 0.3 mg/dL (0.2-1.0); CALCIUM 8.3 mg/dL (8.5-10.1); CREATININE 1.1 mg/dL (0.55-1.02); EST CRCL DRUG DOSING (CG) 25.88 mL/min; MAGNESIUM 2.1 mg/dL (1.8-2.4); POTASSIUM,K 4.5 mmol/L (3.5-5.1); PROTEIN TOTAL,TP 6.7 g/dL (6.4-8.2)
[2025-01-26 16:09] LABS: ANION GAP 13.5 mmol/L (5-15)
[2025-01-26] MEDS: Sodium Chloride 0.9% 1,000 ML IV ONE (16:32)
[2025-01-26 17:23] LABS: APPEARANCE,URINE CLEAR (CLEAR); BILIRUBIN,URINE NEGATIVE (NEGATIVE); COLOR,URINE YELLOW (YELLOW); GLUCOSE,URINE NEGATIVE (NEGATIVE); KETONES,URINE NEGATIVE (NEGATIVE); LEUKOCYTE ESTERASE,URINE NEGATIVE (NEGATIVE); NITRITE,URINE NEGATIVE (NEGATIVE); OCCULT BLOOD,URINE NEGATIVE (NEGATIVE); PH,URINE 6.5 (5.0-8.0); PROTEIN,URINE NEGATIVE (NEGATIVE); UROBILINOGEN,URINE 0.2 EU/dL (0.2)
[2025-01-26 17:45] VITALS: BP 171/82
== END 2025-01-26 17:45 ==
LOC: VM.ED 15:38 → SUPCPDRO 15:38 → VM.ED 17:45
DX: R51.9 Headache, unspecified (principal); M54.2 Cervicalgia; I10 Essential (primary) hypertension; Z88.8 Allergy status to other drugs, medicaments and biological substances; Z88.6 Allergy status to analgesic agent; Z91.040 Latex allergy status; Z88.0 Allergy status to penicillin; Z88.5 Allergy status to narcotic agent; Z88.1 Allergy status to other antibiotic agents; Z88.2 Allergy status to sulfonamides; Z91.048 Other nonmedicinal substance allergy status; Z79.899 Other long term (current) drug therapy; Z86.73 Personal history of transient ischemic attack (TIA), and cerebral infarction without residual deficits; W01.198A Fall on same level from slipping, tripping and stumbling with subsequent striking against other object, initial encounter; Y93.89 Activity, other specified
CPT/HCPCS: 70450; 72125; 80053; 81003; 83735; 85025; 85610; 96360; 99284; 99285-25; J7030